=== PATIENT | male | born 1955 | race Caucasian/White ===

== ENCOUNTER 2017-06-19 14:30 | Emergency (ER) | payer OTHER ==
[2017-06-19] MEDS: 0.9 % SODIUM CHLORIDE 1,000 ML IV ONE (14:50)
[2017-06-19 14:54] LABS: BASOPHILS % 0.7 (0.0-1.5); EOSINOPHILS % 4.5 % (0.0-6.8); MEAN CORPUSCULAR HEMOGLOBIN 32.1 pg (28.0-34.0); MEAN CORPUSCULAR VOLUME 89.8 fl (80.0-100.0); MONOCYTES % 5.1 % (0.0-11.0); NEUTROPHILS # 4.8 # k/uL (1.4-7.7)
[2017-06-19 15:14] LABS: eGFR (African) > 60; eGFR (Non-African) > 60
--- NOTE | 2017-06-19 15:48 | ED Physician Documentation ---
Dizziness - HISTORIAN Historian: patient - HPI Stated Complaint: dizziness for 24 hours Chief Complaint: Dizziness Severity: mild Associated Symptoms: none Worsened By: nothing Further Comments: yes (62 year old male patient brought in via EMS with complaints of dizziness. Patient reports long history of dizziness, has not been evaluated by PCP. Patient states dizziness lasted 1.5 hours. C/O "mild" dizziness on arrival.) - ROS CONST: none EYES/ENT: none GI/: none MS/SKIN/LYMPH: none NEURO/PSYCH: none CVS/RESP: none - PAST HX Past History: hypertension Allergies/Adverse Reactions: Allergies Allergy/AdvReac Type Severity Reaction Status Date / Time No Known Allergies Allergy Verified 06/19/17 15:03 Home Medications: Ambulatory Orders Medication Instructions Recorded Lisinopril/Hydrochlorothiazide 1 tab PO D 06/19/17 [Zestoretic] Meclizine HCl [Antivert] 12.5 mg PO TID PRN #30 tablet 06/19/17 - SOCIAL HX Smoking History: non-smoker - FAMILY HX Family History: denies: none - VITAL SIGNS Vital Signs: Vital Signs Temp Pulse Resp BP Pulse Ox 97.7 F 60 16 159/86 98 06/19/17 14:34 06/19/17 14:36 06/19/17 14:34 06/19/17 14:34 06/19/17 14:36 - REVIEWED ASSESSMENTS Nursing Assessment Reviewed: Yes Vitals Reviewed: Yes Progress - Progress Progress: Cerumen impaction removed. TM - WNL Reviewed lab and EKG findings with patient. Questions answered. Reviewed discharge instructions. - EKG/XRAY/CT EKG: rhythm (Sinus arrhythmia, rate 69) ED Results Lab/Radiology - Lab Results Lab Results: Lab Results 06/19/17 06/19/17 06/19/17 14:45 14:45 14:45 WBC 8.70 K/ul K/ul (4.00-12.00) RBC 4.63 M/ul M/ul (3.90-5.20) Hgb 14.9 g/dL g/dL (12.0-18.0) Hct 41.6 % % (37.0-53.0) MCV 89.8 fl fl (80.0-100.0) MCH 32.1 pg pg (28.0-34.0) MCHC 35.8 g/dL g/dL (30.0-36.0) RDW 13.1 % % (11.3-14.3) Plt Count 231 K/mm3 K/mm3 (130-400) Neut % (Auto) 54.5 % % (39.0-79.0) Lymph % (Auto) 32.4 % % (16.0-50.0) [place] % (Auto) 5.1 % % (0.0-11.0) Eos % (Auto) 4.5 % % (0.0-6.8) Baso % (Auto) 0.7 (0.0-1.5) Neut # (Auto) 4.8 # k/uL # k/uL (1.4-7.7) Lymph # (Auto) 2.8 # k/uL # k/uL (0.6-4.0) [place] # (Auto) 0.4 # k/uL # k/uL (0.0-0.9) Eos # (Auto) 0.4 # k/uL # k/uL (0.0-0.6) Baso # (Auto) 0.1 # k/uL # k/uL (0.0-0.5) Reactive Lymphs % 2.9 % % (0.0-5.0) Reactive Lymphs # 0.3 # k/uL # k/uL (0.0-0.8) Sodium 142 mmol/L mmol/L (136-145) Potassium 3.2 mmol/L L mmol/L (3.5-5.1) Chloride 100 mmol/L mmol/L (98-107) Carbon Dioxide 30 mmol/L mmol/L (22-30) BUN 10 mg/dL mg/dL (9-20) Creatinine 1.00 mg/dL mg/dL (0.66-1.25) Estimated Creat Clear 94 Est GFR ( Amer) > 60 (60 - ) Est GFR (Non-Af Amer) > 60 (60 - ) Glucose 98 mg/dL mg/dL (74-106) Calcium 9.2 mg/dL mg/dL (8.4-10.2) Total Bilirubin 1.5 mg/dL H mg/dL (0.2-1.3) AST 48 U/L H U/L (15-46) ALT 62 U/L U/L (13-69) Troponin I < 0.03 ng/mL L ng/mL (0.03-0.06) Total Protein 7.3 g/dL g/dL (6.3-8.2) Albumin 4.1 g/dL g/dL (3.5-5.0) - Orders Orders: ED Orders Category Date Time Status Continuous EKG monitoring Q30M Care 06/19/17 14:36 Active Continuous Pulse Oximetry Q30M Care 06/19/17 14:36 Active Irrigate Ear 1T Care 06/19/17 14:36 Active CBC/PLATELET/DIFF Stat Lab 06/19/17 14:45 Completed CMP Stat Lab 06/19/17 14:45 Completed TROPONIN I (cTnI) Stat Lab 06/19/17 14:45 Completed 0.9 % Sodium Chloride [Normal Saline] 1,000 ml Med 06/19/17 14:46 Discontinued IV NOW EKG WITH COMPARISON Stat Ther 06/19/17 14:36 Ordered Dizziness Physical Exam - Physical Exam General Appearance: [id number] N EENT: eye inspection normal, ENT inspection normal, pharynx normal, no signs of dehydration, EZEKIEL, no nystagmus, other (Bilateral cerumen impactions) Respiratory: no respiratory distress, breath sounds nml, chest non-tender CVS: reg rate & rhythm, heart sounds normal, equal pulses, no murmur, no gallop , PMI nml, no JVD, no friction rub, 24 Abdomen: soft, no organomegaly, normal bowel sounds, no abdominal bruit, no distension Skin: normal color, warm/dry, NR, INT, PAL, DR Neuro: nml orientation, nml speech, nml cognition, mood/affect nml Extremities: non-tender, normal range of motion, no evidence of injury, no edema , J, [employer] Cranial: nml as tested, no evidence of acute CVA Cerebellar: nml as tested, nml gait Sensorimotor: motor nml, sensation nml Discharge Clincal Impression: Dizziness Prescriptions: Meclizine HCl [Antivert] 12.5 mg PO TID PRN #30 tablet PRN Reason: Dizziness Referrals: Primary Doctor,No [Primary Care Provider] - 2 Days Condition: Stable Disposition: 01 HOME, SELF-CARE Decision to Admit: NO Decision Time: 18:57
[2017-06-19 18:57] VITALS: BP 149/78
== END 2017-06-19 16:00 | disposition home or self-care (01) ==
LOC: ED 14:30
DX: R42 Dizziness and giddiness (principal); I10 Essential (primary) hypertension
CPT/HCPCS: 36415; 80053; 84484; 85025; 96365; 99283; J7030